=== PATIENT | female | born 1945 | race Caucasian/White ===

== ENCOUNTER 2018-06-11 11:47 | Emergency (ER) | payer MEDICARE ==
[~2018-06-11] VITALS: Ht 167.6 cm; Wt 102.5 kg
[2018-06-11] MEDS ORDERED: CLONIDINE HCL0.2 M2 PO (11:58)
[2018-06-11] MEDS ORDERED: NORVASC2.5 MG PO (11:58)
[2018-06-11 12:15] LABS: ABSOLUTE BASOPHILS 0.1 thou/uL (0.0-0.2); ABSOLUTE EOSINOPHILS 0.2 thou/uL (0.0-0.7); ABSOLUTE LYMPHOCYTES 1.9 thou/uL (0.8-5.3); ABSOLUTE MONOCYTES 0.7 thou/uL (0.0-1.2); ABSOLUTE NEUTROPHILS 7.1 thou/uL (1.6-8.1); BASOPHILS 0.8 %; EOSINOPHILS 1.8 %; HEMATOCRIT 41.8 % (37.0-47.0); HEMOGLOBIN 14.2 gm/dL (12.0-15.0); LYMPHOCYTES 19.3 %; MCHC 33.9 g/dL (28.0-37.0); MCV 94.4 fL (80.0-100.0); MONOCYTES 6.6 %; MPV 7.5 fl. (7.2-11.1); NUCLEATED RBCS 0 /100WBC; PLATELET COUNT* 243 thou/uL (150-400); POLYS 71.5 %; RBC 4.43 mil/uL (4.20-5.00); RDW-CV 14.6 % (10.5-14.5); WBC 9.9 thou/uL (4.0-11.0)
[2018-06-11 12:37] LABS: ALKALINE PHOSPHATASE 69 U/L (46-116); ANION GAP 13 mmol/L (7-16); BUN 24 mg/dL (7-18); CALCIUM 9.3 mg/dL (8.5-10.1); CHLORIDE 99 mmol/L (98-107); CO2 25 mmol/L (21-32); GLUCOSE 115 mg/dL (70-99); LIPASE 168 U/L (73-393); NT-PRO BRAIN NAT PEPTIDE 115 pg/mL (<300); POTASSIUM 4.2 mmol/L (3.5-5.1); SGOT 21 U/L (15-37); SGPT 39 U/L (30-65); SODIUM 137 mmol/L (136-145); TOTAL BILIRUBIN 0.4 mg/dL (<0.1-1.0); TOTAL PROTEIN 7.8 g/dL (6.4-8.2); TROPONIN-I LEVEL <0.06 ng/mL (<0.06)
[2018-06-11] MEDS ORDERED: NORVASC5 MG PO (13:10)
[2018-06-11 13:19] VITALS: BP 141/72
--- NOTE | 2018-06-12 12:29 | EKG ---
[place] [address] ELECTROCARDIOGRAM REPORT Name: GI AUSTIN Room: [facility]#: [id number] Admission: 06/11/18 Attend Phys: Discharge: 06/11/18 Date of : 45 Report #: [id number] THIS REPORT FOR: //name// [facility] ED Test Date: 2018-06-11 Test Time: 11:54:42 Pat Name: GI AUSTIN Department: Room: Gender: F Wealth Management Manager: Laisha KUMAR : 1945 Requested By: Socrates Silva Order Number: [id number] MD: Ever Herman Measurements Intervals [place] Rate: 74 P: -11 [place]: 178 QRS: -10 QRSD: 96 T: 22 QT: 423 QTc: 470 Interpretive Statements Sinus rhythm No previous ECG available for comparison Electronically Signed On 06-12-2018 12:29:33 CDT by Ever Herman [email or web address] <ELECTRONICALLY SIGNED> By: Ever Herman MD, [facility] 06/12/18 1229 1154 1154 Ever Herman MD, FACC /EPI
== END 2018-06-11 13:20 | disposition home or self-care (01) ==
LOC: M.ERS 11:47
PROVIDERS: Emergency Medicine
DX: I10 Essential (primary) hypertension (principal); Z88.8 Allergy status to other drugs, medicaments and biological substances

== ENCOUNTER 2018-08-27 08:09 | Emergency (ER) | payer MEDICARE ==
[~2018-08-27] VITALS: Ht 167.6 cm; Wt 90.7 kg
[~2018-08-27 08:09] MED LIST: CLONIDINE HCL0.2 M2 PO; NORVASC10 MG PO; NORVASC5 MG PO
[2018-08-27] MEDS ORDERED: LOSARTAN POTASS50 MG PO (08:19)
[2018-08-27] MEDS ORDERED: LOSARTAN POTAS100 MG PO (08:19)
[2018-08-27] MEDS ORDERED: DEXILANT60 MG PO (08:21)
[2018-08-27] MEDS ORDERED: MACROBID 100 M100 M2 PO (08:21)
[2018-08-27] MEDS ORDERED: GLIPIZIDE 10 MG10 MG PO (08:21)
[2018-08-27] MEDS ORDERED: VESICARE10 M1 PO (08:21)
[2018-08-27] MEDS ORDERED: LIPITOR 20 MG T20 M1 PO (08:22)
[2018-08-27] MEDS ORDERED: METFORMIN HCL500 MG PO (08:22)
[2018-08-27] MEDS ORDERED: ZOVIRAX800 MG PO (08:22)
[2018-08-27] MEDS ORDERED: [UNRECOGNIZED DRUG - CODE] (08:25)
[2018-08-27 08:55] LABS: ABSOLUTE BASOPHILS 0.1 thou/uL (0.0-0.2); ABSOLUTE EOSINOPHILS 0.1 thou/uL (0.0-0.7); ABSOLUTE LYMPHOCYTES 1.4 thou/uL (0.8-5.3); ABSOLUTE MONOCYTES 0.6 thou/uL (0.0-1.2); ABSOLUTE NEUTROPHILS 5.9 thou/uL (1.6-8.1); BASOPHILS 0.9 %; EOSINOPHILS 1.7 %; HEMATOCRIT 43.1 % (37.0-47.0); HEMOGLOBIN 14.8 gm/dL (12.0-15.0); LYMPHOCYTES 17.7 %; MCH 30.5 pg (26.0-34.0); MCHC 34.3 g/dL (28.0-37.0); MCV 89.1 fL (80.0-100.0); MONOCYTES 7.8 %; MPV 7.6 fl. (7.2-11.1); NUCLEATED RBCS 0 /100WBC; PLATELET COUNT* 308 thou/uL (150-400); POLYS 71.9 %; RBC 4.84 mil/uL (4.20-5.00); RDW-CV 13.7 % (10.5-14.5); WBC 8.2 thou/uL (4.0-11.0)
[2018-08-27 08:59] LABS: ANION GAP 14 mmol/L (7-16); BUN 10 mg/dL (7-18); CALCIUM 9.2 mg/dL (8.5-10.1); CHLORIDE 101 mmol/L (98-107); CO2 25 mmol/L (21-32); CREATININE 0.7 mg/dL (0.6-1.3); GLUCOSE 168 mg/dL (70-99); POTASSIUM 3.9 mmol/L (3.5-5.1); SODIUM 140 mmol/L (136-145)
[2018-08-27 09:11] LABS: ALBUMIN 4.1 g/dL (3.4-5.0); ALKALINE PHOSPHATASE 53 U/L (46-116); LIPASE 141 U/L (73-393); SGOT 36 U/L (15-37); SGPT 63 U/L (30-65); TOTAL BILIRUBIN 0.5 mg/dL (<0.1-1.0); TOTAL PROTEIN 7.5 g/dL (6.4-8.2); TROPONIN-I LEVEL <0.06 ng/mL (<0.06)
[2018-08-27 10:40] LABS: URINE BILIRUBIN NEGATIVE (Negative); URINE BLOOD TRACE (Negative); URINE CLARITY CLEAR; URINE COLOR YELLOW; URINE GLUCOSE-RANDOM NEGATIVE (Negative); URINE KETONES NEGATIVE (Negative); URINE LEUKOCYTES-REFLEX NEGATIVE (Negative); URINE NITRITE-REFLEX NEGATIVE (Negative); URINE PROTEIN NEGATIVE (Negative); URINE SPECIFIC GRAVITY <= 1.005 (1.005-1.030); URINE UROBILINOGEN 0.2 E.U./dl (0.2-1.0)
[2018-08-27] MEDS ORDERED: ZOFRAN ODT4 MG DISSOLVE (10:56)
[2018-08-27] MEDS ORDERED: NORCO 5-325 TA1 EAC1 PO (10:56)
[2018-08-27 11:17] VITALS: BP 144/70
--- NOTE | 2018-08-27 14:06 | EKG ---
[place] [address] ELECTROCARDIOGRAM REPORT Name: GI AUSTIN Room: [facility]#: [id number] Admission: 08/27/18 Attend Phys: Discharge: 08/27/18 Date of : 45 Report #: [id number] THIS REPORT FOR: //name// [facility] ED Test Date: 2018-08-27 Test Time: 08:52:36 Pat Name: GI AUSTIN Department: Room: Gender: F Service Technician: : 1945 Requested By: Rip Leigh Order Number: [id number] MD: Babak Perez Measurements Intervals [place] Rate: 64 P: -5 [place]: 165 QRS: -16 QRSD: 93 T: 17 QT: 412 QTc: 425 Interpretive Statements Sinus rhythm Borderline left axis deviation Compared to ECG 06/11/2018 11:54:42 No significant changes Electronically Signed On 08-27-2018 14:05:49 CDT by Babak Perez [email or web address] <ELECTRONICALLY SIGNED> By: Babak Perez MD, [facility] 08/27/18 1405 Babak Perez MD, FACC /EPI
== END 2018-08-27 11:17 | disposition home or self-care (01) ==
LOC: M.ERS 08:09
PROVIDERS: Emergency Medicine Emergency Medical Services
DX: R10.31 Right lower quadrant pain (principal); R10.11 Right upper quadrant pain; I10 Essential (primary) hypertension; K21.9 Gastro-esophageal reflux disease without esophagitis; E78.00 Pure hypercholesterolemia, unspecified; Z88.8 Allergy status to other drugs, medicaments and biological substances

== ENCOUNTER → 2018-10-11 | Outpatient (CLI) | payer MEDICARE ==
[~2018-10-11] MED LIST changes: +DEXILANT60 MG PO; +GLIPIZIDE 10 MG10 MG PO; +LIPITOR 20 MG T20 M1 PO; +LOSARTAN POTAS100 MG PO; +LOSARTAN POTASS50 MG PO; +MACROBID 100 M100 M2 PO; +METFORMIN HCL500 MG PO; +NORCO 5-325 TA1 EAC1 PO; +VESICARE10 M1 PO; +ZOFRAN ODT4 MG DISSOLVE; +ZOVIRAX800 MG PO; +[UNRECOGNIZED DRUG - CODE]
--- NOTE | 2018-10-11 17:47 | CARDNUC ---
[place] [address] CARDIAC NUCLEAR IMAGING REPORT Name: GI AUSTIN Room: [facility]#: [id number] Admission: 10/11/18 Attend Phys: Demian Cash, Discharge: Date of : 45 Date of Service: 10/11/18 1747 Report #: [id number] THIS REPORT FOR: //name// APPROVED REPORT Study performed: 10/11/2018 11:51:02 Exam: Nuclear Stress Test Indication: Coronary calcification. Patient Location: Out-Patient Stress Tech: Paulina Jimenze Stress Nurse: Tori Springer R.N. Ht: 5 ft 7 in Wt: 192 lbs BSA: 1.99 m2 BMI: 30.06 Medical History Medical History: Neuropathy, Coronary Calcification, DM, Hyperlipidemia, HTN. Medications: Atorvastatin, Amlodipine, Carvedilol, Losartan, ASA 81 Mg, Clonidine -PRN, Glipizide, Metformin. Allergies: Amoxicillin, Lisinopril, Valsartan. Cardiac Risk Factors: Age, DM, FHX of CAD, HTN, Hyperlipidemia, Coronary Calcification. Previous Cardiac Procedures: None Pretest Chest Pain Characteristics: No chest pain Exercise History: Indeterminate Physical Disabilities: Neuropathy, Legs, Knees, uses cane to ambulate. Meds Held (24 hrs): Carvedilol. Stress Test Details Stress Test: Pharmacologic stress testing performed using 0.4 mg of regadenoson per 5 mL given IV over 10 seconds. Reason for pharmacologic stress test: Neuropathy, Knees, Leg pain, uses cane to ambulate.. HR Resting HR: 60 bpm Max Heart Rate (APMHR): 147 bpm Max HR Achieved: 100 bpm Target HR (85% APMHR): 124 bpm % of APMHR: 68 Recovery HR: 88 bpm BP Resting BP: 150/61 mmHg Max BP: 191/58 [place] [address] CARDIAC NUCLEAR IMAGING REPORT Name: GI AUSTIN Leeanne Room: [facility]#: [id number] Admission: 10/11/18 Attend Phys: Demian Cash, Discharge: Date of : 45 Date of Service: 10/11/18 1747 Report #: [id number] ECG Resting ECG: Sinus Rhythm Stress ECG: Sinus Rhythm ST Change: None Arrhythmia: None Recovery ECG: Sinus Rhythm Recovery ST Change: None Recovery Arrhythmia: None Clinical Reason for Termination: Completed protocol Stress Symptoms: None Exercise duration: 00 min 00 sec Exercise capacity: 1.00 METs The patient tolerated Lexiscan infusion without significant cardiac symptoms. Nurse Comments 73 year old female presented with new DX of Coronary Calcification. Patient tolerated sitting Lexiscan well. Recovery unremarkable with PO caffeine, effective. Patient was escorted via wheelchair by staff to Nuclear Medicine for images. Patient was stable with no complaints at that time. Stress ECG Conclusion The baseline 12-lead EKG show sinus rhythm with no significant ST or T wave abnormalities. EKGs obtained during and post Lexiscan infusion show sinus rhythm with no significant ST or T wave changes when compared baseline. There were no stress-induced arrhythmias. NM EXAM: Myocardial Perfusion REST/STRESS Imaging Protocol: Rest Tc-99m/Stress Tc-99m 1 day Resting Data Rest SPECT myocardial perfusion imaging was performed in supine position 30 minutes following the intravenous injection of 11.6 mCi of Tc-99m Sestamibi. Time of rest injection: 10:00 The images were gated to evaluate regional wall motion and calculate left ventricular ejection fraction. Administration Route: IV Administration Site: [place] Pharmacologic Stress Pharmacologic stress test was performed by injecting Regadenoson 0.4 [place] [address] CARDIAC NUCLEAR IMAGING REPORT Name: GI AUSTIN Room: [facility]#: [id number] Admission: 10/11/18 Attend Phys: Demian Cash, Discharge: Date of : 45 Date of Service: 10/11/18 1747 Report #: [id number] IV push followed by the intravenous injection of 32.2 mCi of Tc-99m Sestamibi. Time of stress injection: 11:50 Administration Route: IV Administration Site: Right [place] Heart Rate at time of stress injection: 100 bpm. Gated Stress SPECT was performed 40 minutes after stress injection. The images were gated to evaluate regional wall motion and calculate left ventricular ejection fraction. Study Quality Study: Good Artifact: Mild Breast artifact Study Data At rest, the left ventricular ejection fraction was 68%.. Post stress, the left ventricular ejection was 68%.. TID = 0.95. Perfusion There is mild photopenia in the mid anterior wall on resting images consistent with breast attenuation artifact. Post stress images show uniform uptake of the radioisotope throughout the myocardium without defect. Wall Motion Normal left ventricular wall motion. Nuclear Conclusion ECG Findings: negative for ischemia Clinical Findings: negative for ischemia Nuclear Findings: negative for ischemia Exercise Capacity: not assessed Left Ventricular Function: normal Risk Study: low Myocardial perfusion images show no defect to suggest infarct or ischemia. Left ventricular systolic function appears normal on gated studies. This is a low risk study. <Conclusion> The baseline 12-lead EKG show sinus rhythm with no significant ST or T wave abnormalities. EKGs obtained during [place] [address] CARDIAC NUCLEAR IMAGING REPORT Name: GI AUSTIN Room: [facility]#: [id number] Admission: 10/11/18 Attend Phys: Demian Cash, Discharge: Date of : 45 Date of Service: 10/11/18 1747 Report #: [id number] show sinus rhythm with no significant ST or T wave changes when compared baseline. There were no stress-induced arrhythmias. <ELECTRONICALLY SIGNED> By: Demian Cash MD, FACC 10/11/181746 46 46 Demian Cash MD, FACC /INF
== END ==
LOC: M.NUC 09-30 13:23 → M.CRD 09:00 → M.NUC 09:15
DX: I25.10 Atherosclerotic heart disease of native coronary artery without angina pectoris (principal); I10 Essential (primary) hypertension; E78.5 Hyperlipidemia, unspecified; E11.9 Type 2 diabetes mellitus without complications